=== PATIENT | male | born 1935 | race Caucasian/White ===

== ENCOUNTER 2018-11-14 22:54 | Inpatient (IN) | payer OTHER ==
[~2018-11-14] VITALS: Ht 185.4 cm; Wt 89.8 kg
--- NOTE | ~2018-11-14 | HC ---
[facility] [place] [address] CONSULTATION Name: OBDULIO RESENDIZMeaghan Room #: [address] [place] [address] IN M.R.#: [id number] Admission: 11/14/18 ������������������ Attend Phys: Reji Graves MD Discharge: 11/23/18 ������������������ Date of : 35 Report #: [id number] THIS REPORT FOR: //name// CC: Dr. Jose Graves DATE OF SERVICE: 11/22/2018 PALLIATIVE CARE CONSULTATION REQUESTING PHYSICIAN: Dr. Garcia. CHIEF COMPLAINT: Acute on chronic hypoxic respiratory failure. HISTORY OF PRESENT ILLNESS: The patient is an 83-year-old male who presented to [facility] on 11/14/2018. He had acute on chronic hypoxic respiratory failure secondary to pneumonia. He has severe sepsis related to this. Unfortunately, he has had overall declining condition. He had initial improvement followed by significant decline. After, unfortunately due to a history of severe dementia, he has had significant difficulty with agitation, pulling out IV lines as well as other overall deleterious self-care. For this, he is on Precedex in order to maintain his overall comfort and to maintain the current care that he has. The patient has also been on TPN; however, and has been n.p.o. due to significant dysphagia. Significantly, he also has atrial fibrillation with bradycardia. This is continuing despite the discontinuation of amiodarone, which seemed to start this. The patient has moderate aortic stenosis. He has been minimal responsiveness, but again he has been on Precedex. He denies significant pain at this time. Denies significant air hunger. Denies nausea. Denies any other concerns at this point in time. He is difficult to arouse from sleep at times and he certainly has delirium. PAST MEDICAL HISTORY: Significant for atrial fibrillation, aortic stenosis, dementia, chronic kidney disease, chronic hypoxic respiratory failure. SOCIAL HISTORY: Lives at [facility]. The patient's daughter is durable power of dobie man. He has a son as well who is involved in his care, but he is not DPOA. Belkys Celaya is who I have discussed his case was today. CODE STATUS: DNR. ALLERGIES: No known drug allergies. MEDICATIONS: Reviewed and includes DuoNeb, famotidine, hydrocortisone 50 mg hours q.12, Zithromax, TPN as previously stated, Zosyn, Humalog, potassium [address] [address] CONSULTATION Name: MARCELINO RESENDIZ Room #: 243-P [facility] IN M.R.#: [id number] Admission: 11/14/18 ������������������ Attend Phys: Reji Graves MD Discharge: 11/23/18 ������������������ Date of : 35 Report #: [id number] chloride, magnesium sulfate, Geodon, Imdur, metoprolol, vancomycin, Zyvox, Haldol. FAMILY HISTORY: Noncontributory. PAST SURGICAL HISTORY: Could not obtain significantly at this time due to the patient's medical status. REVIEW OF SYSTEMS: Again, overall it is somewhat difficult to obtain, although he denies any pain at this time. Denies nausea. Denies air hunger. Denies any focal again pain or any constipation. PHYSICAL EXAMINATION: Includes: VITAL SIGNS: Temperature 36.0, pulse 50, respirations 21, blood pressure 128/63, 96% on nasal cannula. GENERAL: The patient appears to be oriented to self. He can recognize his daughter; otherwise he is not able to answer questions. He is in no acute distress currently. INTEGUMENTARY: He does have excoriated area to the center of his nose probable area where BiPAP was in place. CARDIOVASCULAR: He has irregularly irregular rhythm and rate, however, also bradycardic. RESPIRATORY: Diffuse rales noted. ABDOMEN: Soft, nontender to palpation. Mild distention only. EXTREMITIES: No apparent heel pain bilaterally. LABS: Hemoglobin 10.9, white blood cells 39.4, creatinine 1.3, platelets 124. ASSESSMENT AND PLAN: 1. Acute on chronic hypoxic respiratory failure. Did discuss this extensively with daughter, GUILLERMO at this time, I believe the patient to be a good candidate for hospice house admission. Did discuss multiple options available, but daughter did desire to have an inpatient palliative care admission if patient was stable enough for this. I did discuss this with case management, confirmed DNR status, confirmed that they would not like to proceed forward with any kind of PEG tube placement, also confirmed that she would like to proceed forward with having p.o. intake if only fluids to start. Did discuss with her that the risks of pneumonia worsening and also with . The patient's daughter is understanding of this and desires him to go forward with this, which I have changed at this time and informed primary team. The patient will be evaluated by inpatient hospice tomorrow and I have discussed this with case management. I spent approximately 35 minutes on discussion of advanced care planning today. 2. Dementia, severe, again this contributes to his overall longevity. The patient also likely having dysphagia secondary to this. This would likely cause recurrent aspiration and pneumonia in the future. The patient's daughter wishes to change him to full comfort care once he is evaluated by inpatient hospice. [facility] [address] [place] [address] CONSULTATION Name: MARCELINO RESENDIZ Room #: 243-P DIS IN M.R.#: [id number] Admission: 11/14/18 ������������������ Attend Phys: Reji Graves MD Discharge: 11/23/18 ������������������ Date of : 35 Report #: [id number] 3. Dysphagia as previously stated. I believe this is a large, well contributed to his overall status at this time. The patient's daughter is understanding of this and understanding the PEG tube would not necessarily improve either his longevity and certainly not his quality of life; however, she was not desiring this prior to this discussion as well. Thank you very much for this consultation. Please contact me if you have any other questions with regards to his care, but can likely proceed forward to inpatient hospice hopefully tomorrow. ��������������������������������������������� ���������������������������������������� By: ��������������������������������������������� 1934 1718 Torey Smith DO /nt
[2018-11-14 22:55] VITALS: BP 91/54
[2018-11-14 23:21] LABS: BE(vivo) -1.4 mmol/L (-2 to +3); HCO3 22.6 mmol/L (22.0-26.0); PCO2 35.7 mmHg (35.0-45.0); PO2 81.3 mmHg (80.0-100.0); pH 7.419 (7.360-7.450); sO2 96.2 % (92.0-98.0)
[2018-11-14 23:23] LABS: MCH 30.2 pg (26.0-34.0)
[2018-11-14 23:26] LABS: HEMATOCRIT 38.9 % (42.0-52.0); HEMOGLOBIN 12.9 gm/dL (14.0-18.0); MCHC 33.1 g/dL (28.0-37.0); MCV 91.4 fL (80.0-100.0); PLATELET COUNT 145 thou/uL (150-400); RBC 4.26 mil/uL (4.50-6.00)
[2018-11-14 23:28] LABS: WBC 45.6 thou/uL (4.0-11.0)
[2018-11-14 23:29] LABS: CALCIUM 8.9 mg/dL (8.5-10.1); CREATININE 2.1 mg/dL (0.7-1.3); POTASSIUM 4.2 mmol/L (3.5-5.1)
[2018-11-14 23:37] LABS: ALBUMIN 3.8 g/dL (3.4-5.0); MAGNESIUM 1.7 mg/dL (1.8-2.4); TOTAL BILIRUBIN 0.9 mg/dL (<0.1-1.0); TOTAL PROTEIN 7.6 g/dL (6.4-8.2)
[2018-11-14 23:41] LABS: TROPONIN-I 1.01 ng/mL (<0.06)
[2018-11-14 23:48] LABS: URINE BILIRUBIN NEGATIVE (Negative); URINE BLOOD NEGATIVE (Negative); URINE CLARITY SL CLOUDY; URINE COLOR YELLOW; URINE GLUCOSE-RANDOM* NEGATIVE (Negative); URINE KETONES TRACE (Negative); URINE LEUKOCYTES-REFLEX NEGATIVE (Negative); URINE NITRITE-REFLEX NEGATIVE (Negative); URINE PROTEIN (DIPSTICK) 2+ (Negative); URINE SPECIFIC GRAVITY >= 1.030 (1.005-1.035); URINE UROBILINOGEN 0.2 E.U./dl (0.2-1.0)
[2018-11-14 23:57] LABS: AMORPHOUS URATES Moderate /LPF (None Seen); FINE GRANULAR CASTS 0-3 Few /LPF (None Seen); HYALINE CASTS 0-3 Few /LPF (None Seen); MUCUS 0-3 Light strn/LPF (None Seen); SQUAMOUS 4-10 Moderate /LPF (0-3); URINE RBC 0-2 Rare /HPF (0-2); URINE WBC-REFLEX 0-5 Rare /HPF (0-5)
[2018-11-15] VITALS (54 sets, daily range): BP systolic 71–147; BP diastolic 33–100
[2018-11-15 00:52] LABS: ABSOLUTE NEUTROPHILS 37.8 thou/uL (1.4-8.2); METAMYELOCYTES 1 %
[2018-11-15 00:54] LABS: PLATELET ESTIMATE DECREASED; POLYCHROMASIA 1+
[2018-11-15] MEDS ORDERED: ALPRAZOLAM 0.0.25 M1 PO ×2 (03:23)
[2018-11-15] MEDS ORDERED: AMBIEN 5 MG TABL5 M1 PO (03:24)
[2018-11-15] MEDS ORDERED: ASPIRIN81 M2 PO (03:24)
[2018-11-15] MEDS ORDERED: LIPITOR 20 MG T20 M1 PO (03:24)
[2018-11-15] MEDS ORDERED: CHERATUSSIN AC118 ML PO (03:26)
[2018-11-15] MEDS ORDERED: LISINOPRIL20 MG PO (03:27)
[2018-11-15] MEDS ORDERED: ARICEPT 5 MG TAB5 MG PO (03:27)
[2018-11-15] MEDS ORDERED: DEPAKOTE 250MG250 M1 PO (03:27)
[2018-11-15] MEDS ORDERED: SERTRALINE HCL50 MG PO (03:28)
[2018-11-15] MEDS ORDERED: REMERON15 M2 PO (03:28)
[2018-11-15] MEDS ORDERED: MIRALAX17 GM PO (03:28)
[2018-11-15] MEDS ORDERED: ZYPREXA5 MG PO (03:29)
[2018-11-15 05:20] LABS: CALCIUM 7.9 mg/dL (8.5-10.1); CREATININE 1.9 mg/dL (0.7-1.3); POTASSIUM 4.4 mmol/L (3.5-5.1)
--- NOTE | 2018-11-15 05:46 | NUR ---
ASSUMED CARE OF PATIENT FROM ER. EXTREMELY DIAPHORETIC, CONFUSED AND UNABLE TO ANSWER ADMISSION QUESTIONS. DAUGHTER AT BEDSIDE. STATES HE HAS DEMENTIA AND HIS BASELINE IS CONFUSION. MED REC COMPLETE. BLOOD PRESSURES TRENDING DOWNWARD, LEVO GTT STARTED. GOAL TO KEEP MAP ABOVE 60. LEBLANC CATHETER INSERTED. POC GOALS ESTABLISHED. WILL CONTINUE TO MONITOR.
[2018-11-15 05:49] LABS: TROPONIN-I 2.77 ng/mL (<0.06)
[2018-11-15 06:05] LABS: RBC 3.82 mil/uL (4.50-6.00)
[2018-11-15 06:07] LABS: HEMATOCRIT 35.1 % (42.0-52.0); HEMOGLOBIN 11.6 gm/dL (14.0-18.0); MCH 30.3 pg (26.0-34.0); MCHC 32.9 g/dL (28.0-37.0); RDW 15.5 % (10.5-14.5)
[2018-11-15 06:16] LABS: WBC 44.5 thou/uL (4.0-11.0)
[2018-11-15 06:21] LABS: APTT 32.2 Seconds (24.5-32.8); PROTIME 10.8 Seconds (9.3-11.4)
--- NOTE | 2018-11-15 07:58 | EKG ---
[place] [address] [facility] [place] [address] ELECTROCARDIOGRAM REPORT Name: MARCUS RESENDIZKEYA Room #: 251-P ADM IN M.R.#: [id number] ������������������ Admission: 11/14/18 ������������������ Attend Phys: Nitin Jerez MD Discharge: ������������������ Date of : 35 Report #: [id number] ����������������������������������������������������������������� [id number] THIS REPORT FOR: //name// [facility] ED Test Date: 2018-11-14 Test Time: 23:02:41 Pat Name: MARCELINO RESENDIZ Department: Room: 251 Gender: M Explosive Technician: ALBARO : 1935 Requested By: Bib Velez Order Number: [id number] MD: Indra Simental Measurements Intervals [facility] Rate: 109 P: 1 UT: 152 QRS: -41 QRSD: 89 T: 79 QT: 371 QTc: 500 Interpretive Statements Sinus tachycardia Ventricular premature complex Left axis deviation RSR' in V1 or V2, right VCD Borderline prolonged QT interval No previous ECG available for comparison Electronically Signed On 11-15-2018 7:58:23 HEAVY EQUIPMENT RENTAL ASSOCIATE by Indra Simental [email or web address] ��������������������������������������������� <ELECTRONICALLY SIGNED> ���������������������������������������� By: Indra Simental MD, [facility] ��������������������������������������������� 11/15/18 0758 01 01 Indra Simental MD, [facility] /EPI
--- NOTE | 2018-11-15 08:17 | EKG ---
[place] [address] [facility] [place] [address] ELECTROCARDIOGRAM REPORT Name: MARCUS RESENDIZKEYA Room #: 251-P ADM IN M.R.#: [id number] ������������������ Admission: 11/14/18 ������������������ Attend Phys: Nitin Jerez MD Discharge: ������������������ Date of : 35 Report #: [id number] ����������������������������������������������������������������� [id number] THIS REPORT FOR: //name// [facility] Test Date: 2018-11-15 Test Time: 07:10:25 Pat Name: MARCELINO RESENDIZ Department: Room: [facility] Gender: M Services Delivery Driver: CHADWICK : 1935 Requested By: Iris Hidalgo Order Number: [id number] MD: Indra Simental Measurements Intervals [place] Rate: 74 P: 35 RI: 199 QRS: -2 QRSD: 115 T: 92 QT: 490 QTc: 544 Interpretive Statements Sinus rhythm Early R-wave progression Nonspecific ST segment abnormality No previous ECG available for comparison Electronically Signed On 11-15-2018 8:17:00 TACTICAL AIR DEFENSE CONTROLLER by Indra Simental [email or web address] ��������������������������������������������� <ELECTRONICALLY SIGNED> ���������������������������������������� By: Indra Simental MD, [facility] ��������������������������������������������� 11/15/18 0817 0710 9 Indra Simental MD, [facility]ACC /EPI
--- NOTE | 2018-11-15 10:53 | 2DMMODE ---
[facility] [address] [place] [address] 2 D/M-MODE ECHOCARDIOGRAM Name: MARCUS RESENDIZKEYA Room #: 251-P ADM IN .R.#: [id number] ������������� Admission: 11/14/18 ������������� Attend Phys: Nitin Jerez MD Discharge: ��� ������������� ��� Date of : 35 Date of Service: 11/15/18 1053 �� Report #: [id number] �������� ��������������������������������������������[id number] THIS REPORT FOR: //name// APPROVED REPORT Study performed: 11/15/2018 09:56:28 EXAM: Comprehensive 2D, Doppler, and color-flow Echocardiogram Patient Location: ICU Room #: [facility] Status: routine BSA: 2.15 HR: 77 bpm BP: 96/48 mmHg Rhythm: NSR/PVCs Other Information Study Quality: Good Indications Short of breath, elevated troponin. Hx: CAD, HTN, HLP, COPD 2D Dimensions RVDd: 40.13 mm IVSd: 12.83 (7-11mm) LVOT Diam: 23.40 (18-24mm) LVDd: 40.35 mm PWd: 9.63 (7-11mm) Ascending Ao: 42.56 (22-36mm) LVDs: 27.94 (25-40mm) Aortic Root: 39.69 mm Volumes Left Atrial Volume (Systole) Single Plane 4CH: 61.61 mL Single Plane 2CH: 63.87 mL LA ESV Index: 32.00 mL/m2 Aortic Valve AoV Peak Amauri.: 3.46 m/s AO Peak Gr.: 48.01 mmHg LVOT Max P.47 mmHg AO Mean Gr.: 30.54 mmHg AO V2 Mean: 2.67 m/s LVOT Max V: 1.37 m/s AO V2 VTI: 86.24 cm JENNIFER Vmax: 1.69 cm2 Mitral Valve E/A Ratio: 0.8 [facility] [place] [address] 2 D/M-MODE ECHOCARDIOGRAM Name: MARCELINO RESENDIZ Room #: 251-P [facility] IN M.R.#: [id number] ������������� Admission: 11/14/18 ������������� Attend Phys: Nitin Jerez MD Discharge: ��� ������������� ��� Date of : 35 Date of Service: 11/15/18 1053 �� Report #: [id number] �������� ��������������������������������������������[id number] MV Decel. Time: 190.66 ms MV E Max Amauri.: 0.92 m/s MV A Amauri.: 1.14 m/s MV PHT: 55.29 ms IVRT: 87.66 ms Pulmonary Valve PV Peak Amauri.: 1.14 m/s PV Peak Gr.: 5.23 mmHg Tricuspid Valve TR Peak Amauri.: 3.31 m/s RAP Estimate: 5.00 mmHg TR Peak Gr.: 43.84 mmHg PA Pressure: 49.00 mmHg Left Ventricle The left ventricle is normal size. There is normal LV segmental wall motion. Mild basal septal hypertrophy is present. Left ventricular systolic function is normal. LVEF is 60-65%. Mild diastolic dysfunction is present (impaired relaxation pattern). Right Ventricle The right ventricle is normal size. The right ventricular systolic function is normal. Atria Left atrium is mildly dilated. Right atrium is at the upper limits of normal. Aortic Valve Aortic valve is heavily calcified. Mild aortic regurgitation. Moderate aortic stenosis. Peak pressure gradient of 48mmHg, mean of 31mmHg. Vmax 3.46m/s Mitral Valve Mitral valve leaflets are mildly thickened. Moderate mitral annular calcification. At least moderate mitral regurgitation. No evidence of mitral valve stenosis. Tricuspid Valve The tricuspid valve is normal in structure. Moderate tricuspid regurgitation. Estimated PAP is 50mmHg. Pulmonic Valve The pulmonary valve is normal in structure. Trace pulmonic regurgitation. [address] [address] 2 D/M-MODE ECHOCARDIOGRAM Name: MARCELINO RESENDIZ Room #: 251-P [facility] IN [facility].#: [id number] ������������� Admission: 11/14/18 ������������� Attend Phys: Nitin Jerez MD Discharge: ��� ������������� ��� Date of : 35 Date of Service: 11/15/18 1053 �� Report #: [id number] �������� ��������������������������������������������[id number] [employer] Aortic root is dilated at 4.0cm. Ascending aorta is dilated at 4.3cm. IVC is normal in size and collapses >50% with inspiration. Pericardium There is no pericardial effusion. <Conclusion> The left ventricle is normal size. LVEF is 60-65%. Left atrium is mildly dilated. Right atrium is at the upper limits of normal. Aortic valve is heavily calcified. Mild aortic regurgitation. Moderate aortic stenosis. Peak pressure gradient of 48mmHg, mean of 31mmHg. Vmax 3.46m/s Mitral valve leaflets are mildly thickened. Moderate mitral annular calcification. At least moderate mitral regurgitation. The tricuspid valve is normal in structure. Moderate tricuspid regurgitation. Estimated PAP is 50mmHg. The pulmonary valve is normal in structure. Trace pulmonic regurgitation. There is no pericardial effusion. ��������������������������������������������� <ELECTRONICALLY SIGNED> ���������������������������������������� By: Rodríguez Danielle MD ��������������������������������������������� 11/15/18 1053 1053 1053 Rodríguez Danielle MD /INF
--- NOTE | 2018-11-15 12:05 | NUR ---
VASCULAR ACCESS TEAM CONSULTED FOR PICC LINE. PT'S LABS,MEDS,HISTORY,ORDER AND CONSENT VERIFIED. PT WAS PREPPED AND DRAPED FOR MAX BARRIER PRECAUTIONS. SHABANA BRACHIAL WIDELY PATENT WITH USG,1% LIDOCAINE GIVEN SQ.5FR TL POWER PICC TRIMMED TO 45CM INSERTED TO 1CM EXTERNAL .PICC SECURED STAT CXR ORDERED.
--- NOTE | 2018-11-15 13:22 | NUR ---
Patient admits with sepsis. He has hx of dementia resides at [facility] care unit assisted living. Sp with dtr plan return once stable. Therapy to eval. Updated [place]. [email or web address] following.
--- NOTE | 2018-11-15 14:58 | NUR ---
FAXED CLINICAL UPDATE TO [facility] SPOKE WITH DELLA IN ADM, SHE RECEIVED UPDATE. DCP TO FOLLOW.
--- NOTE | 2018-11-15 19:18 | NUR ---
ASSESSMENTS DOCUMENTED. SINUS RHYTHM ON THE MONITOR. NOTICED INCREASE IN PVC'S - COMMUNICATED TO CARDIOLOGY, CONTINUE TO MONITOR. ORDERS FOR PICC LINE TO BE INSERTED BY IV NURSE. RIGHT UPPER ARM TRIPLE LUMEN. REMAINS OF 4L NC. CONGESTED COUGH. RESP VIRAL SWAB AND MRSA SWAB SENT TO LAB. LEVO GTT TITRATED DOWN TO 2. DAUGHTER AT BEDSIDE THIS AFTERNOON. WILL CONTINUE TO MONITOR.
[2018-11-15 22:37] LABS: BE(vivo) -8.5 mmol/L (-2 to +3); PCO2 30.6 mmHg (35.0-45.0); PO2 102.2 mmHg (80.0-100.0); pH 7.337 (7.360-7.450); sO2 97.4 % (92.0-98.0)
[2018-11-16] VITALS (40 sets, daily range): BP systolic 75–150; BP diastolic 49–97
--- NOTE | 2018-11-16 05:04 | NUR ---
ASSUMED CARE OF PATIENT AT 1900. VSS, AFEBRILE. EXTREMELY AGITATED AND CONFUSED. CLIMBING OUT OF BED, STATING HE NEEDED TO URINATE. UNABLE TO REDIRECT. HUMAN RELATIONS PROFESSOR NOTIFIED. IM ZYPREXA GIVEN. NO RELIEF. ORDERS OBTAINED FOR HALDOL. PATIENT REMAINS AGITATED, ANXIOUS, IMPULSIVE. ORDERS OBTAINED FOR RESTRAINTS AND ABGS. CRITICAL LACTATE CALLED TO HUMAN RELATIONS PROFESSOR. ORDERS RECIEVED FOR FLUID BOLUS AND ATIVAN. BOLUS GIVEN AND WELL ATIVAN. PATIENT CONTINUES TO TRY TO CLIMB OUT OF BED, FIXATING ON URINATION, HIS CELL PHONE, WALLET. HUMAN RELATIONS PROFESSOR NOTIFIED. GEODON GIVEN. WELL 2ND FLUID BOLUS. OF 0500 PATIENT HAS NOT SLEPT, CONTINUES TO THROW LEGS OUT OF BED, IS TACHYPNIC AND TACHYCARDIC AT TIMES. BP REMAINS STABLE, LEVOPHED TURNED OFF AT 0300. WILL CONTINUE TO CLOSELY MONITOR AND UPDATE PHYSICIAN NEEDED.
[2018-11-16 05:52] LABS: HEMATOCRIT 34.9 % (42.0-52.0); HEMOGLOBIN 11.1 gm/dL (14.0-18.0); MCH 29.6 pg (26.0-34.0); MCHC 31.8 g/dL (28.0-37.0); MCV 93.1 fL (80.0-100.0); PLATELET COUNT 121 thou/uL (150-400); RBC 3.74 mil/uL (4.50-6.00); RDW 15.1 % (10.5-14.5)
[2018-11-16 05:57] LABS: WBC 72.2 thou/uL (4.0-11.0)
[2018-11-16 06:16] LABS: CALCIUM 8.6 mg/dL (8.5-10.1); CREATININE 1.6 mg/dL (0.7-1.3); POTASSIUM 3.9 mmol/L (3.5-5.1)
[2018-11-16 06:18] LABS: TROPONIN-I 4.4 ng/mL (<0.06)
[2018-11-16 08:57] LABS: ABSOLUTE NEUTROPHILS 56.3 thou/uL (1.4-8.2); METAMYELOCYTES 6 %; MYELOCYTES 2 %; PLATELET ESTIMATE NORMAL
--- NOTE | 2018-11-16 12:45 | HC ---
[facility] [place] [place] [address] CONSULTATION Name: MARCELINO RESENDIZ Room #: 251-[facility] IN M.R.#: [id number] Admission: 11/14/18 ������������������ Attend Phys: Reji Graves MD Discharge: ������������������ Date of : 35 Report #: [id number] THIS REPORT FOR: //name// CC: Mayda Jerez DATE OF SERVICE: 11/15/2018 ATTENDING PHYSICIAN: Nitin Jerez MD. REASON FOR CONSULTATION: Antibiotic management, sepsis. HISTORY OF PRESENT ILLNESS: An 83-year-old white man admitted through the Emergency Room from a local usp, [facility], with increasing shortness of breath and significant leukocytosis, low-grade fevers and unable to give significant information. He may have a lower respiratory tract infection, though his chest x-ray is only compatible with COPD. I have no official chest x-ray report. He has received Rocephin, now is on Zosyn. He has received Zithromax. He is on Levophed drip and systemic steroids. The patient is unable to give any information. All information gathered from review of records. PAST MEDICAL HISTORY: COPD; dementia; possible underlying chronic kidney disease with acute kidney injury; elevation of troponin, possible myocardial infarction. DRUG ALLERGIES: None listed. MEDICATIONS: The patient is currently on treatment with Zosyn 3.375 grams IV every 8 hours, aspirin 600 mg rectally daily, famotidine 10 mg b.i.d., p.r.n. glucose glucagon, regular insulin intravenously, hydrocortisone 100 mg IV every 6 hours, receiving norepinephrine drip. He is on p.r.n. vasopressin and nitroglycerin sublingually p.r.n., ondansetron p.r.n. He has received Rocephin and Zithromax as well as methylprednisolone. SOCIAL HISTORY: Unable to obtain. FAMILY HISTORY: Unable to obtain. REVIEW OF SYSTEMS: Unable to obtain. PHYSICAL EXAMINATION: GENERAL: Elderly white man in the ICU because of Levophed drip. He is DNR. VITAL SIGNS: As follows: Temperature maximum since admission 100.2, pulse 74, respirations 16. BP as low is 75/45, currently is 96/48. He is on Levophed drip 5 mcg per minute. [address] [address] CONSULTATION Name: MARCELINO RESENDIZ Room #: [address] [place] [address] IN .R.#: [id number] Admission: 11/14/18 ������������������ Attend Phys: Reji Graves MD Discharge: ������������������ Date of : 35 Report #: [id number] HEENWI: Unable to examine. The patient tightly closing eyes. He is not opening his mouth on request. NECK: Stiff. The patient is stiff all over. LUNGS: Few rhonchi here and there. HEART: S1, S2. No gallop or murmur. ABDOMEN: Soft, no masses or megaly. GENITOURINARY AND RECTAL: Deferred. Lundy catheter in place. EXTREMITIES: No clubbing or cyanosis. NEUROLOGIC: Unable to evaluate. LABORATORY DATA: CO2 23, BUN 24, creatinine 1.9, glucose 196. Lactic acid elevated on admission 3.1 millimoles per liter. Troponin elevated 2.77. NT-proBNP elevated 2644 pg/mL. WBC significantly elevated at 44,500, hemoglobin 11.6 g/dL, and thrombocytopenia of 125,000 noted. White blood cell count differential revealed 74% segmented neutrophils, 10% monocytes, 5% lymphocytes. The rapid influenza A and B test negative. Procalcitonin mildly elevated at 0.59 ng/mL. We will repeat. The urinalysis with 2+ proteinuria, trace ketones, has moderate squamous epithelial cells and bacteriuria as well as hyaline and fine granular cast. The fine granular cast may suggest pyelonephritis. The ABGs reveal pH 7.41, pCO2 35, pO2 81, bicarbonate 22.6, lactate elevated 2.62. These set of gases are on 4 liters oxygen nasal cannula. MICROBIOLOGY DATA: The blood and urine and sputum cultures are all pending at time of this dictation. RADIOLOGY EVALUATION: Chest x-ray revealed chronic changes. No obvious infiltrate. Echocardiogram pending. Electrocardiogram reveal sinus rhythm, early R-wave progression, nonspecific ST-T abnormalities. ASSESSMENT: 1. Febrile illness with significant leukocytosis, lactic acidosis and hypotension, possible sepsis. 2. Question acute pyelonephritis versus lower respiratory tract infection. 2. Mild thrombocytopenia. 3. Possible chronic kidney disease with acute kidney injury. 4. Dementia. 5. Elevation of troponin, possible myocardial infarction. SUGGESTIONS: MRSA screen already ordered. Obtain ESR and CRP. Await culture results. Continue Zosyn. Continue Zithromax 500 mg IV daily. I see no obvious pneumonia and no history of MRSA, consequently not getting vancomycin. Continue steroids. [facility] [address] [place] [address] CONSULTATION Name: MARCELINO RESENDIZ Room #: 251-P ADM IN M.R.#: [id number] Admission: 11/14/18 ������������������ Attend Phys: Reji Graves MD Discharge: ������������������ Date of : 35 Report #: [id number] Jerez, thank you for requesting my suggestions. ��������������������������������������������� <ELECTRONICALLY SIGNED> ���������������������������������������� By: Josse Isidro MD ��������������������������������������������� 11/16/18 1245 1023 0424 Josse Isidro MD /nt
[2018-11-16 19:47] LABS: BE(vivo) -6.9 mmol/L (-2 to +3); HCO3 18.4 mmol/L (22.0-26.0); PCO2 36.4 mmHg (35.0-45.0); PO2 53.8 mmHg (80.0-100.0); pH 7.322 (7.360-7.450); sO2 85.7 % (92.0-98.0)
--- NOTE | 2018-11-16 20:05 | NUR ---
PT ALERT TO SELF ONLY. HAS HX DEMENTIA/ALZHEIMERS. VERY CONFUSED AND RESTLESS THIS AM. IN BILATERAL SOFT WRIST RESTRAINTS. CONTINUED TO PULL AT [place]. HEMATURIA NOTED FROM EXECUTIVE DIRECTOR OF NURSING. NOTED ELEVATED WBC AND LACTATE - PROVIDERS AWARE. CHANGES MADE TO IV ABX BY ID. SPEECH GREG DONE THIS MORNING. STARTED ON PUREED-HONEY THICK LIQUID DIET. DAUGHTER AT BEDSIDE THIS AFTERNOON. PT CONTINUED TO PULL AT [place], SPOKE WITH KASSY VALENCIA TO D/C. PATIENT WITH INCREASED TACHYPNEA AND O2 NEEDS THIS AFTERNOON. SPOKE WITH DR. CORONEL - STAT CHEST XRAY, ABG'S AND PULM CONSULT. SPOKE WITH DR. JOHN- WILL SEE PATIENT TONIGHT. PT ALSO HAVING MORE FREQUENT PVC'S AND IRREGULAR RHYTHM WITH RUNS OF VTACH. EKG DONE AND COMMUNICATED TO CARDIOLOGY. ORDERS RECIEVED. WILL UPDATE DAUGHTER JOSSY ON PT STATUS. MOVED FROM 251 TO 243.
[2018-11-17] VITALS (76 sets, daily range): BP systolic 78–150; BP diastolic 48–91
[2018-11-17 05:05] LABS: BE(vivo) -5.4 mmol/L (-2 to +3); HCO3 20.1 mmol/L (22.0-26.0); PCO2 39.3 mmHg (35.0-45.0); PO2 78.9 mmHg (80.0-100.0); sO2 94.9 % (92.0-98.0)
[2018-11-17 05:06] LABS: pH 7.327 (7.360-7.450)
[2018-11-17 06:26] LABS: HEMATOCRIT 32.4 % (42.0-52.0); HEMOGLOBIN 10.4 gm/dL (14.0-18.0); MCH 29.9 pg (26.0-34.0); MCHC 32.1 g/dL (28.0-37.0); MCV 93.1 fL (80.0-100.0); PLATELET COUNT 113 thou/uL (150-400); RBC 3.48 mil/uL (4.50-6.00); RDW 15.3 % (10.5-14.5)
[2018-11-17 06:28] LABS: WBC 68.6 thou/uL (4.0-11.0)
[2018-11-17 06:37] LABS: ALBUMIN 2.7 g/dL (3.4-5.0); CALCIUM 8.2 mg/dL (8.5-10.1); CREATININE 1.6 mg/dL (0.7-1.3); POTASSIUM 3.7 mmol/L (3.5-5.1); TOTAL BILIRUBIN 0.4 mg/dL (<0.1-1.0); TOTAL PROTEIN 6.1 g/dL (6.4-8.2)
[2018-11-17 06:41] LABS: TROPONIN-I 2.43 ng/mL (<0.06)
[2018-11-17 06:59] LABS: ABSOLUTE NEUTROPHILS 50.1 thou/uL (1.4-8.2); METAMYELOCYTES 4 %; MYELOCYTES 11 %
[2018-11-17 07:04] LABS: ANISOCYTOSIS 1+; POLYCHROMASIA SLIGHT
--- NOTE | 2018-11-17 08:34 | NUR ---
ASSUMED CARE OF PT AT 1900 ON 11/16/18. UPON ASSUMING CARE, PT CONFUSED AND ATTEMPTING TO GET OUT OF BED. PT IN EXTREME RESP DISTRESS. HR ELEVATED WITH LOTS OF PVCs AND PACs. AMIO BOLUS GIVEN AND AMIO GTT STARTED. PT PLACED ON BIPAP AND PRECEDEX GTT. INITIALLY, PRECEDEX GTT HAD LITTLE EFFECT ON CALMING PT, SO PT WAS ALSO GIVEN HALDOL AND ATIVAN. PT EVENTUALLY DID CALM DOWN, AND PT'S BP DROPPED. PT STARTED ON LEVO GTT AT LOW DOSE. PT ALSO GIVEN 80 MG OF LASIX. PT'S HR BEGAN TO DROP, SO PRECEDEX GTT TITRATED DOWN. PT EVENTUALLY WOKE UP AND BECAME AGITATED AND IMPULSIVE AGAIN; PRECEDEX GTT INCREASED AGAIN. PT REMAINED ON BIPAP THROUGHOUT THE NIGHT, RR CONTINUED TO BE ELEVATED, BUT INCREASED MORE AT TIMES OF AGITATION. DAUGHTER UPDATED ON ROOM CHANGE AND PT'S CONDITION. ASSESSMENTS AND VITALS DOCUMENTED. WILL CONTINUE TO MONITOR.
--- NOTE | 2018-11-17 08:37 | EKG ---
[place] [address] [address] [facility] [employer] [place] [address] ELECTROCARDIOGRAM REPORT Name: MARCUS RESENDIZKEYA Room #: 243-P ADM IN M.R.#: [id number] ������������������ Admission: 11/14/18 ������������������ Attend Phys: Reji Graves MD Discharge: ������������������ Date of : 35 Report #: [id number] ����������������������������������������������������������������� [id number] THIS REPORT FOR: //name// [facility] Test Date: 2018-11-16 Test Time: 17:47:13 Pat Name: MARCELINO RESENDIZ Department: Room: [facility] Gender: M Fiberglass Boat Finisher: Simran FREEMAN : 1935 Requested By: Jacqui Junior Order Number: [id number] MD: Indra Simental Measurements Intervals [place] Rate: 125 P: WA: QRS: -4 QRSD: 95 T: 50 QT: 311 QTc: 449 Interpretive Statements Atrial fibrillation Paired ventricular premature complexes Abnormal R-wave progression, early transition Nonspecific ST and T wave abnormality Compared to ECG 11/15/2018 07:10:25 Ventricular premature complex(es) now present Atrial fibrillation is new Electronically Signed On 11-17-2018 8:36:56 CONDITIONING ROOM WORKER by Indra Simental [email or web address] ��������������������������������������������� <ELECTRONICALLY SIGNED> ���������������������������������������� By: Indra Simental MD, [facility] ��������������������������������������������� 11/17/18 0836 [id number] Indra Simental MD, [facility] /EPI
--- NOTE | 2018-11-17 10:09 | NUR ---
Nutrition: pt admit with sepsis, PNA, NSTEMI to ICU unit. ST eval, prior diet advanced to pureed with honey thick liquids. Per ICU rounds, pt aspirated yesterday and is now NPO on bipap. DNR with hx of Alzheimers, lives in memory care. No wt hx available. Will follow for timely diet advance/POC.
[2018-11-18] VITALS (33 sets, daily range): BP systolic 106–150; BP diastolic 59–88
[2018-11-18 05:14] LABS: BE(vivo) -4.3 mmol/L (-2 to +3); HCO3 19.3 mmol/L (22.0-26.0); PCO2 30.7 mmHg (35.0-45.0); PO2 72.2 mmHg (80.0-100.0); pH 7.416 (7.360-7.450)
[2018-11-18 05:56] LABS: RDW 15.2 % (10.5-14.5)
[2018-11-18 05:59] LABS: HEMATOCRIT 29.6 % (42.0-52.0); HEMOGLOBIN 9.7 gm/dL (14.0-18.0); MCH 30.6 pg (26.0-34.0); MCHC 32.6 g/dL (28.0-37.0); MCV 93.8 fL (80.0-100.0); PLATELET COUNT 96 thou/uL (150-400); RBC 3.16 mil/uL (4.50-6.00)
[2018-11-18 06:01] LABS: WBC 43.8 thou/uL (4.0-11.0)
[2018-11-18 06:12] LABS: ALBUMIN 2.1 g/dL (3.4-5.0); CALCIUM 7.6 mg/dL (8.5-10.1); CREATININE 1.3 mg/dL (0.7-1.3); POTASSIUM 3.1 mmol/L (3.5-5.1); TOTAL BILIRUBIN 0.5 mg/dL (<0.1-1.0); TOTAL PROTEIN 5.5 g/dL (6.4-8.2); TROPONIN-I 0.46 ng/mL (<0.06)
[2018-11-18 07:06] LABS: ABSOLUTE NEUTROPHILS 29.8 thou/uL (1.4-8.2); METAMYELOCYTES 9 %; MYELOCYTES 8 %; PLATELET ESTIMATE DECREASED; PROMYELOCYTES 2 %
--- NOTE | 2018-11-18 07:29 | NUR ---
PT STAYED ON BIPAP ALLL NIGHT, TACHYPNEIC SATS GREATER THAN 93%. PT LIGHTLTY SEDATED ON PRECEDEX, AND RESTRAINED, OCCASSIONALLY WAKES UP AND GETS RESTLESS AND ANXIOUS. PT SINUS BRADYCARDIA ON THE MONITOR, AMIODARONE AND LEVOPHED TURNED OFF AT 2030 , HR RANGED 40'S TO 50'S AND PT MAINTAINING MAP GREATER THAN 60 WITH LEVO OFF. URINE OUTPUT 300 , DARK AND CONCENTRATED URINE. PT NPO , ORAL CARE DONE FREQUENTLY, MEPLIX FOAM PLACED ON THE BRIDGE OF NOSE, FOR REDNESS AND IRRITATION FROM BIPAP MASK.
--- NOTE | 2018-11-18 14:35 | NUR ---
PT. RESIDES AT [facility]. DCP FAXED CLINICAL UPDATE TO FACILITY AND SPOKE WITH DELLA IN ADM, SHE RECEIVED UPDATE ALSO LET HER KNOW THAT PT. WILL NOT DISCHARGE OVER WEEKEND. DCP TO FOLLOW.
--- NOTE | 2018-11-18 17:35 | NUR ---
ASSESSMENTS DOCUMENTED. PT REMAINS ON BIPAP - FIO2 40%. PRECEDEX GTT FOR COMFORT. AMIO GTT OFF. SINUS MIKHAIL ON THE MONITOR. BLOOD PRESSURE STABLE - LEVO GTT REMAINS OFF. GOOD URINE OUTPUT. REMAINS NPO. BILATERAL WRIST RESTRAINTS. WILL CONTINUE TO MONITOR.
[2018-11-18 23:06] LABS: ADENOVIRUS Negative (Negative); INFLUENZA A Negative (Negative); INFLUENZA B Negative (Negative); METAPNEUMOVIRUS Negative (Negative); PARAINFLUENZA 1 Negative (Negative); PARAINFLUENZA 2 Negative (Negative); PARAINFLUENZA 3 Negative (Negative); RHINOVIRUS Negative (Negative); RSV A Negative (Negative); RSV B Positive (Negative)
[2018-11-19] VITALS (50 sets, daily range): BP systolic 118–174; BP diastolic 55–130
[2018-11-19 04:19] LABS: HEMOGLOBIN 10.8 gm/dL (14.0-18.0)
[2018-11-19 04:22] LABS: HEMATOCRIT 33.6 % (42.0-52.0); MCHC 32.3 g/dL (28.0-37.0); PLATELET COUNT 108 thou/uL (150-400); RBC 3.61 mil/uL (4.50-6.00); RDW 15.1 % (10.5-14.5)
[2018-11-19 04:36] LABS: ALBUMIN 2.3 g/dL (3.4-5.0); CALCIUM 8.6 mg/dL (8.5-10.1); CREATININE 1.5 mg/dL (0.7-1.3); POTASSIUM 3.7 mmol/L (3.5-5.1); TOTAL BILIRUBIN 0.5 mg/dL (<0.1-1.0); TOTAL PROTEIN 6.4 g/dL (6.4-8.2); TROPONIN-I 0.23 ng/mL (<0.06)
[2018-11-19 04:38] LABS: WBC 52.6 thou/uL (4.0-11.0)
[2018-11-19 05:27] LABS: BE(vivo) -2.8 mmol/L (-2 to +3); PCO2 28.6 mmHg (35.0-45.0); PO2 90.2 mmHg (80.0-100.0); pH 7.462 (7.360-7.450); sO2 97.4 % (92.0-98.0)
[2018-11-19 06:24] LABS: ABSOLUTE NEUTROPHILS 43.7 thou/uL (1.4-8.2); METAMYELOCYTES 7 %; MYELOCYTES 1 %
[2018-11-19 06:25] LABS: ANISOCYTOSIS 1+
[2018-11-19 06:28] LABS: POLYCHROMASIA OCCASIONAL
--- NOTE | 2018-11-19 07:31 | NUR ---
PT CONFUSED LIGHTLY SEDATED ON PRECEDEX, BIPAP ON , RESTRAINTS ON, BREATH SOUNDS ARE VERY COARSE WITH CRACKLES, PT HAS A WEAK COUGH, UNABLE TO CLEAR SECRETIONS. VITAL STABLE, AFEBRILE. POTTASIUM REPLACED PER OLIVERIO MITCHELL' ORDERS , RECHECK WITH AM LABS.
--- NOTE | 2018-11-19 07:38 | NUR ---
ASSESS PT WITH MARLENI RT. PT REMAINS COURSE THROUGHOUT AND AGITATED. RESPIRATIONS IN THE HIGH 30S. RT TO TALK TO DR ISBELL AND AND CONSIDER COMFORT FLOW. PT OXYGEN SATURATION 96% ON BIPAP. WILL INCREASE PRECEDEX GTT AND CONTINUE TO ASSESS.
--- NOTE | 2018-11-19 11:21 | NUR ---
PT SWITCHED TO COMFORT FLOW AND NOTICE PRESSURE WOUND ON THE BRIDGE OF NOSE. TAKE PHOTO AND COMPLETE WOUND INTERVENTION. WILL CONTINUE TO ASSESS.
[2018-11-20] VITALS (21 sets, daily range): BP systolic 133–149; BP diastolic 62–77
--- NOTE | 2018-11-20 06:44 | NUR ---
ASSUMED PT CARE AT 1900 WITH REPORT TAKEN AND NO SIGN OF DISTRESS NOTED IN PT. PT IS ALERT BUT CONFUSED. NO FAMILY AT BEDSIDE DURING SHIFT REPORT BUT PT'S DAUGHTER CAME OVER LATER ON, PT IS ON A HIGH FLOW OXYGEN. PT IS IN RESTRAINTS, SCHEDULED MEDS ADMINISTERED TO PT, VITAL SIGNS TAKEN, NO FURTHER NEEDS AT THIS TIME.
--- NOTE | 2018-11-20 07:03 | NUR ---
ASSUMED PT CARE AT 1900, PT IS INTUBATED. PT IS UNRESPONSIVE AND WAITING TO BE EXTUBATED WHEN FAMILY ARRIVES. PT IS STABLLE. VITAL SIGN STABLE, NO FUTHER NEEDS AT THIS TIME
[2018-11-20 17:30] LABS: CALCIUM 8.4 mg/dL (8.5-10.1); CREATININE 1.5 mg/dL (0.7-1.3)
[2018-11-20 17:34] LABS: POTASSIUM 2.6 mmol/L (3.5-5.1)
--- NOTE | 2018-11-20 18:21 | NUR ---
PT IS AWAKE FOLLOWS SOME COMMANDS. DROWSY ON PRECEDIX DRIP. REPLACE POTASIUM DUE TO LAB. TURN Q 2HOURS. LEBLANC TO DD WITH GOOD OUTPUT. BLOOD PRESSURE STABLE AFIB ON THE MONITOR. NPO AT THIS TIME. RESTRAINTS IN BILATERAL. FAMILY AT BEDSIDE FOR SUPPORT. LUNGS ARE COARSE THROUGHOUT. ON HIGH FLOW 02 AT 30 % AND OXYGEN SATURATION IS 97 PERCENT. WILL CONTINUE TO ASSESS AND MONITOR PER NURSING STAFF. NO ISSUES OR CONCERNS
--- NOTE | 2018-11-20 20:46 | NUR ---
HANDED CARE OF PT TO RN ERIC AT 2049.
[2018-11-21] VITALS (34 sets, daily range): BP systolic 114–175; BP diastolic 58–131
--- NOTE | 2018-11-21 05:40 | NUR ---
END OF SHIFT SUMMARY: Pt has remained stable this shift. Monitor a-fib with rates 50-60's, intermittent episodes of sinus carina in 50's, and one 5 beat VT. Remains on Opti-flow at 38 L plus 30% FiO2, O2 sat remains > 92%. Skin integrity intact. Urine output adequate. Pt remains sedated on Precedex, soft wrist restraints in place to prevent removal of Opti-flow apparatus.
[2018-11-21 05:42] LABS: MCH 30.1 pg (26.0-34.0); MCHC 32.5 g/dL (28.0-37.0); MCV 92.8 fL (80.0-100.0); PLATELET COUNT 124 thou/uL (150-400); RBC 3.66 mil/uL (4.50-6.00); RDW 15.2 % (10.5-14.5); WBC 39.5 thou/uL (4.0-11.0)
[2018-11-21 05:59] LABS: ALBUMIN 2.3 g/dL (3.4-5.0); CREATININE 1.5 mg/dL (0.7-1.3); MAGNESIUM 2.2 mg/dL (1.8-2.4); PHOSPHORUS 3.7 mg/dL (2.5-4.9); POTASSIUM 3.1 mmol/L (3.5-5.1); TOTAL BILIRUBIN 0.7 mg/dL (<0.1-1.0); TOTAL PROTEIN 6.4 g/dL (6.4-8.2)
[2018-11-21 06:13] LABS: METAMYELOCYTES 2 %
[2018-11-21 06:15] LABS: ANISOCYTOSIS 1+; PLATELET ESTIMATE DECREASED; POLYCHROMASIA 1+
--- NOTE | 2018-11-21 09:32 | NUR ---
Recommend enteral nutrition instead of parenteral. Would suggest jevity 1.5 to start 30ml/hr and progress to goal 65ml/hr. Also needs fluids as Na/Cl are elevated.
--- NOTE | 2018-11-21 09:53 | NUR ---
Nutrition status now high risk for extended npo status. Recommending tube feeds.
--- NOTE | 2018-11-21 10:51 | NUR ---
chart reviewed updated Caleb regarding care status. DC funeral planner to fax updates
--- NOTE | 2018-11-21 19:06 | NUR ---
OPENS EYES TO VERBAL SIMULI. FOLLOWS COMMANDS WITH HAND MAIN LINE ASSEMBLER. SKIN WARM, DRY AND INTACT. REMAINS ON OPTIFLOW PER NASAL CANULA 35% AND 35L. BILAT WRIST RESTRAINTS ON. LEBLANC TO DEPENDENT DRAINAGE WITH YELLOW URINE WITH SEDIMENT. TRACE EDEMA TO LOWER EXTREMITES. SCDS ON. FAMILY AT BEDSIDE MOST OF DAY AND HE RECOGNIZED SON. FOLLOWED COMMANDS WITH PHYSICAL THERAPY AND DANGLED AT BEDSIDE. NO BM TODAY - SOFT STOOL HIGH IN RECTAL VAULT. ABD SOFT ROUND WITH BS IN ALL QUADS. RIGHT UPPER ARM PICC INTACT TRIPLE LUMEN. K REPLACEMNT PROTOCOL USED FOR CRITICALLY LOW K. TURNED EVERY 2 HOURS WITH ORAL CARE. MOUTH WITH DRY ESCAR PRESENT ON ROOF OF MOUTH. SPONTANOUS COUGH WITH GOOD EFFORT NON PRODUCTIVE. REMAINS NPO.
[2018-11-22] VITALS (24 sets, daily range): BP systolic 101–150; BP diastolic 54–77
[2018-11-22 05:16] LABS: HEMOGLOBIN 10.9 gm/dL (14.0-18.0)
[2018-11-22 05:18] LABS: HEMATOCRIT 33.7 % (42.0-52.0); MCH 30.1 pg (26.0-34.0); MCHC 32.3 g/dL (28.0-37.0); MCV 93.3 fL (80.0-100.0); RBC 3.61 mil/uL (4.50-6.00); RDW 15.2 % (10.5-14.5); WBC 39.9 thou/uL (4.0-11.0)
[2018-11-22 05:34] LABS: CALCIUM 8.1 mg/dL (8.5-10.1); CREATININE 1.3 mg/dL (0.7-1.3); MAGNESIUM 2.1 mg/dL (1.8-2.4); PHOSPHORUS 3.6 mg/dL (2.5-4.9); POTASSIUM 3.3 mmol/L (3.5-5.1)
--- NOTE | 2018-11-22 06:48 | NUR ---
No significant changes observed through the night. VS stable and SpO2 adequate on current FiO2. Large amount of urine output for shift and no BM observed. Remains lightly sedated on precedex gtt and rested well through the night. Am lab results noted, continue with POC.
--- NOTE | 2018-11-22 16:50 | NUR ---
FOLLOWING FOR DC PLANNING. CLINICAL INFO REVIEWED AND DISCUSSED WITH DR. PEACOCK AFTER HE MET WITH FAMILY INCLUDING DTR JOSSY TO DISCUSS GOALS OF CARE. PER DR. PEACOCK HE RECOMMENDED PALLIATIVE CARE AND WILL CONSULT DR MITCHELL TO ASSIST FAMILY WITH DECISION MAKING.
[2018-11-23] VITALS (14 sets, daily range): BP systolic 109–151; BP diastolic 56–79
[2018-11-23 04:12] LABS: ALBUMIN 2.3 g/dL (3.4-5.0); CALCIUM 7.8 mg/dL (8.5-10.1); CREATININE 1.2 mg/dL (0.7-1.3); MAGNESIUM 2.3 mg/dL (1.8-2.4); PHOSPHORUS 3.9 mg/dL (2.5-4.9); POTASSIUM 3.5 mmol/L (3.5-5.1)
[2018-11-23 04:29] LABS: HEMATOCRIT 33.1 % (42.0-52.0); HEMOGLOBIN 10.7 gm/dL (14.0-18.0); RBC 3.55 mil/uL (4.50-6.00)
[2018-11-23 04:32] LABS: MCH 30.1 pg (26.0-34.0); MCHC 32.3 g/dL (28.0-37.0); MCV 93.2 fL (80.0-100.0); RDW 14.8 % (10.5-14.5)
[2018-11-23 04:34] LABS: WBC 50.1 thou/uL (4.0-11.0)
--- NOTE | 2018-11-23 04:41 | NUR ---
ASSUMED CARE AT 1900. PATIENT AWAKE, MINIMALLY AGITATED. PULLING OFF HIS OXIMITER. TRYING CRAWL OUT OF BED. PRECEDEX INCREASED TO 1 MCG/KG/HR. PATIENT UNABLE TO MAKE HIS NEEDS KNOWN DUE TO INCOHERENT SPEECH. VSS. AFIBRILE. SINUS RHYTHM ON THE MONITOR. SLEPT ON AND OF THROUGH THE NIGHT. PATIENT ON SEVERAL ANTIBIOTICS. WBC THIS MORNING WAS 50.1. CLOTH SECONDS SORTER ALE NOTIFIED. NO NEW ORDERS RECEIVED. wILL CONTINUE TO MONITOR AND FOLLOW POC.
--- NOTE | 2018-11-23 08:00 | NUR ---
PT RESTLESS- PULLING AT LEBLANC, SCOOTING LEGS TO SIDE OF BED. GENERALLY UNCOMPREHESIBE SOUNDS, THEN HAS AN OCCASIONAL APPROPIATE WORD. SR WITH PAC'S, PRECEDEX INFUSING FOR PT AGITATION, THEN PT CALM. 3L/NC, VERY STRONG COUGH BUT UNABLE TO COUGH UP ANY SECRETIONS. UNABLE TO TOLERATE THICKENED LIQUIDS, BEGINS COUGHING SEVERAL MINUTES AFTER COMPLETED EATING. LEBLANC WITH ADEQUATE URIEN OUTPUT.
[2018-11-23] MEDS ORDERED: ALPRAZOLAM 0.0.25 M1 PO (08:58)
[2018-11-23] MEDS ORDERED: METOPROLOL SUCC25 M1 PO (08:59)
[2018-11-23] MEDS ORDERED: IMDUR 30 MG TAB30 M1 PO (08:59)
[2018-11-23] MEDS ORDERED: MSL20MG/ML PO (09:01)
--- NOTE | 2018-11-23 09:56 | NUR ---
FAXED REFERRAL TO HOSPICE HOUSE SPOKE WITH CR IN ADM. SHE RECEIVED REFERRAL AND [facility] FOR HOSPICE NOTIFIED BY BRYCE AND ONSITE EVAL ARRANGED. DCP TO FOLLOW.
--- NOTE | 2018-11-23 10:29 | NUR ---
Spoke with dtr Belkys regarding hospice referral. She is interested in [facility] and she is familiar with them. Referral faxed and called to Hospice. Their nurse liason is here this am to eval for transfer to the house and to meet with the pt an his dtr. The pt is alert this am. Hard to understand. Remains on percedex for aggitation. Dtr on her way here to visit with the liason. Outside the hospital DNR form noted on the chart. The house has a bed available this am and can accept if the family is agreeaable. Will follow.
--- NOTE | 2018-11-23 13:39 | NUR ---
PT. DISCHARGING TODAY TO HOSPICE HOUSE FAXED DC ORDERS/SUMMARY TO FACILITY SPOKE WITH CR IN ADM. AND NOTIFIED HER OF 15OO TRANSPORT VIA AMB. DCP SPOKE WITH DTR AT BEDSIDE AND INFORMED HER THAT I NOTIFIED PT'S FACILITY ([facility]) THAT PT. WILL NOT RETURN AND SHE WILL BE AT FACILITY TODAY TO ARRANGE FOR HIS BELONGINGS. UNIT NOTIFIED AND CHART COPY PER US.
--- NOTE | 2018-11-23 15:10 | NUR ---
COMFORT MEASURES. DAUGHTER PRESENT AND AGREEING TO PT TRANSFER TO HOSPICE HOUSE. PRECEDEX DC'D. REPORT CALLED TO JOE NUNN RN-HOSPICE HOUSE AT 1435. [facility] ARRIVED, GIVEN FACESHEET, PHYSICIAN CERTIFICATION STATEMENT AND PACKET OF INFORMATION FOR HOSPICE. AT 1510, PT TRANSFERRED PER EMS ON GURNEY WITH 3L/NC. FAXED DISCHARGE INSTRUCTIONS AND ADDITIONAL SCRIPT TO HOSPICE HOUSE.
== END 2018-11-23 16:01 | disposition hospice, inpatient (51) | DRG 871 ==
LOC: ER 22:54 → EROBS 23:44 → ICU 23:44
PROVIDERS: Emergency Medicine; Hospitalist; Internal Medicine Infectious Disease; Internal Medicine Pulmonary Disease; Nurse Practitioner Family; Pediatrics; Specialist; ADMIT Internal Medicine
DX: A41.9 Sepsis, unspecified organism (principal); R65.21 Severe sepsis with septic shock; G92 Toxic encephalopathy; I21.4 Non-ST elevation (NSTEMI) myocardial infarction; J96.21 Acute and chronic respiratory failure with hypoxia; J69.0 Pneumonitis due to inhalation of food and vomit; N17.9 Acute kidney failure, unspecified; E87.0 Hyperosmolality and hypernatremia; G30.9 Alzheimer's disease, unspecified; F02.80 Dementia in other diseases classified elsewhere, unspecified severity, without behavioral disturbance, psychotic disturbance, mood disturbance, and anxiety; J44.9 Chronic obstructive pulmonary disease, unspecified; N18.9 Chronic kidney disease, unspecified; D69.6 Thrombocytopenia, unspecified; I48.91 Unspecified atrial fibrillation; Z66 Do not resuscitate; Z51.5 Encounter for palliative care; F32.9 Major depressive disorder, single episode, unspecified; F41.9 Anxiety disorder, unspecified; E78.5 Hyperlipidemia, unspecified; I25.10 Atherosclerotic heart disease of native coronary artery without angina pectoris; G47.00 Insomnia, unspecified; I95.9 Hypotension, unspecified; I12.9 Hypertensive chronic kidney disease with stage 1 through stage 4 chronic kidney disease, or unspecified chronic kidney disease; I35.0 Nonrheumatic aortic (valve) stenosis; K21.9 Gastro-esophageal reflux disease without esophagitis; D72.823 Leukemoid reaction; R13.10 Dysphagia, unspecified; E87.6 Hypokalemia; Z79.82 Long term (current) use of aspirin; Z79.899 Other long term (current) drug therapy
CPT/HCPCS: 10203; 27000